=== PATIENT | male | born 1990 | race Two or more races ===

== ENCOUNTER 2020-10-22 20:35 | Emergency (ER) | payer OTHER ==
[~2020-10-22] VITALS: Ht 175.3 cm; Wt 81.6 kg
[2020-10-22 20:52] VITALS: BP 132/90
--- NOTE | 2020-10-22 21:07 | NUR ---
covid swab collected. sent to lab
--- NOTE | 2020-10-22 21:25 | NUR ---
lab called regarding negative covid result.
== END 2020-10-22 21:45 ==
LOC: ER 20:37
DX: Z02.89 Encounter for other administrative examinations (principal); R05 Cough; J02.9 Acute pharyngitis, unspecified; Z20.822 Contact with and (suspected) exposure to COVID-19
CPT/HCPCS: 87426; 99283; C9803